=== PATIENT | male | born 1960 | race Caucasian/White ===

== ENCOUNTER 2023-12-13 17:29 | Emergency (ER) | payer BC, SELFPAY ==
[2023-12-13 17:30] VITALS: BP 150/75; PULSE 61; RESP 16; TEMP 36.6; O2SAT 94
[2023-12-13 17:32] VITALS: BMI 36.3
[2023-12-13 18:13] VITALS: O2SAT 98
--- NOTE | 2023-12-13 18:13 | EKG12_ITS ---
Test Reason : Blood Pressure : / mmHG Vent. Rate : 053 BPM Atrial Rate : 053 BPM P-R Int : 180 ms QRS Dur : 080 ms QT Int : 430 ms P-R-T Axes : 033 -17 048 degrees QTc Int : 403 ms Sinus bradycardia Otherwise normal ECG Confirmed by BENNY LAWLER, ANA ([id number]), publications editor PER AVILES ([id number]) on 12/17/2023 10:09:36 AM Referred By: Confirmed By:HIRAL ZAPATA MD
[2023-12-13 18:29] VITALS: BP 122/65; PULSE 57; RESP 16; O2SAT 98
--- NOTE | 2023-12-13 18:31 | RAD_ITS ---
EXAM: XR CHEST, 1 VIEW CLINICAL INDICATION: chest pain TECHNIQUE: Frontal view of the chest. COMPARISON: No relevant prior studies available. FINDINGS: LUNGS AND PLEURAL SPACES: Unremarkable. No consolidation or edema. No pneumothorax. No effusion. HEART: Unremarkable. Cardiac silhouette not enlarged. MEDIASTINUM: Central airways and mediastinal contour are unremarkable. BONES/JOINTS: Unremarkable. No acute fracture. SOFT TISSUES: Unremarkable. RAD/Chest 1 View (Portable) IMPRESSION: No radiographic evidence of acute cardiopulmonary disease. Electronically Signed: Alex Conway MD at 19:20 EDT ,
--- NOTE | 2023-12-13 18:49 | EDS_ITS ---
HPI History of Present Illness Chief Complaint: Hypoglycemia Narrative Narrative: 63-year-old male presenting with dizziness and weakness. He believes he is having low blood sugar problems. He states he is never been checked for this but he states every time he feels like his sugars are low he eats food such as candy bars or chips and gets his sugar up and the symptoms resolved. He states during his episodes he does get diaphoretic and his vision is blurry. Patient does not have a history of diabetes. He does not check his sugars. Today he was feeling like his sugar was low so he asked his for some food and she had breath minutes which she gave him. He states this is his worst episode yet. This is why they decided to come to the emergency room today. PFSH PFSH Allergy/AdvReac Type Severity Reaction Status Date / Time aspirin Allergy Severe Angioedema Verified 12/13/23 17:32 Social History Smoking Status: Former smoker ROS ROS ED Constitutional Constitutional ED: Reports sweats; Denies chills or fever(s) Eyes Eyes: Denies blurry vision or change in vision ENT ENT ED: Denies ear pain or sore throat Cardiovascular Cardiovascular: Reports palpitations and racing heartbeat; Denies chest pain Respiratory/Chest Respiratory/Chest: Denies cough, dyspnea or sputum Gastrointestinal Gastrointestinal: Denies abdominal pain, constipation, diarrhea, nausea or vom iting Genitourinary Genitourinary ED: Denies dysuria, hematuria or urinary frequency Musculoskeletal Musculoskeletal: Denies arthralgias, myalgias or neck pain Integumentary Denies abscess, Abrasions or rash Neurologic Neurologic: Denies headache(s), paresthesias or weakness Psychiatric Psychiatric: Denies anxiety, depression, suicidal ideation or suicidal thoughts Endocrine Endocrinology: Denies polydipsia or polyuria EXAM Physical Exam Const Vital Signs: 12/13/23 17:30 12/13/23 17:55 12/13/23 18:13 Temperature 98 F Temperature Source Oral Pulse Rate 61 Respiratory Rate 16 Respiratory Effort Normal Blood Pressure 150/75 H Blood Pressure Mean 100 Pulse Ox 94 98 Oxygen Delivery Method Room Air Room Air 12/13/23 18:29 12/13/23 19:00 12/13/23 19:58 Temperature 98 F Temperature Source Pulse Rate 57 L 57 L 55 L Respiratory Rate 16 18 16 Respiratory Effort Blood Pressure 122/65 H 131/78 H 144/73 H Blood Pressure Mean 84 95 96 Pulse Ox 98 97 97 Oxygen Delivery Method Room Air Room Air General Appearance ED: Negative for pallor HEENT Reports normocephalic, head/scalp atraumatic and moist mucous membranes Eyes PERRL and EOMs intact bilaterally Neck no lymphadenopathy and supple Chest Wall inspection of chest normal and palpation of chest normal Resp normal respiratory effort and clear to auscultation bilaterally Auscultation: Negative for rales, rhonchi or wheezes Cardio regular rate and regular rhythm GI normal to inspection, nondistended, normoactive bowel sounds and non-distended Auscultation: normoactive bowel sounds Palpation: soft Narrative: Deferred Back/Spine no CVA tenderness General Back: Negative for CVA tenderness Cervical Spine: Negative for cervical spine tenderness Extremity normal to inspection General Extremety ED: Yes edema and tenderness General Extremity: edema Neuro oriented x3 and CN's II-XII intact bilaterally Sensorium / Orientation: alert Motor Exam: strength 5/5 throughout Psych mental status grossly normal Attitude: No agitated Skin no rashes or lesions noted and no wounds General Skin Exam: Negative for jaundice or pallor MDM MDM MDM Narrative Medical decision making narrative: Patient presenting with episodes where he gets weak and he is concerned it might be his blood sugar. Differential includes near syncope, ACS, dehydration, anemia, hypoglycemia, electrolyte abnormalities. CBC will be obtained to assess white blood cell count, hemoglobin, platelets. BMP to assess renal function, electrolytes, glucose. High-sensitivity troponin and EKG to assess for i schemia/dysrhythmia. Chest x-ray to rule out pneumonia. BGT was 90. CBC shows normal white blood cell count of 7.3. Hemoglobin 15.1. Platelets are normal at 231. Renal function and electrolytes within normal limits. EKG interpreted by myself shows sinus bradycardia at a rate of 53 bpm without sign of ischemic change or ectopy. Chest x-ray interpreted by myself shows no acute process. High-sensitivity troponin is 4. TSH is 3.11 normal. Given patient's workup is ultimately normal I suspect maybe he is having hypoglycemic episodes. I recommend he follow-up with his PCP he is not currently established. I gave him 1 to follow-up with. Return precautions were discussed. Impression: 1. Weakness 2. Dizziness Lab Data Attestation: I reviewed the patient's lab results. Labs: Laboratory Results - last 24 hr 12/13/23 18:30 WBC 7.3 RBC 4.79 Hgb 15.1 Hct 43.6 MCV 91.0 MCH 31.5 MCHC 34.6 RDW Std Deviation 41.9 RDW Coeff of Heath 12.6 Plt Count 231 MPV 9.7 Immature Gran % (Auto) 0.400 Neut % (Auto) 49.7 Lymph % (Auto) 36.8 Orange % (Auto) 9.1 Eos % (Auto) 3.2 Baso % (Auto) 0.8 Absolute Neuts (auto) 3.6 Absolute Lymphs (auto) 2.68 Nucleated RBC % 0 Sodium 137 Potassium 3.5 Chloride 106 Carbon Dioxide 25.0 Anion Gap 6 BUN 14 Creatinine 0.81 Estim Creat Clear Calc 122.08 Est GFR (MDRD) Af Amer 124 Est GFR (MDRD) Non-Af 102 BUN/Creatinine Ratio 17.3 Glucose 109 H Calcium 8.9 Troponin I High Sens 4 TSH 3.11 Radiography Diagnostic Testing: Clinical Impression(s) from Imaging Studies Chest X-Ray 12/13/23 18:31 IMPRESSION: No radiographic evidence of acute cardiopulmonary disease. Electronically Signed: Alex Conway MD at 19:20 EDT , Discharge Plan Triage Chief Complaint: Hypoglycemia ED Provider: Rory Munroe Dx/Rx/DC Orders Instructions: ED Hypoglycemia, Nondiabetic Primary Care Provider: Care Physician,No Primary Referrals: Miriam Hughes MD [Med Staff - Speech Pathologist] - 3-5 Days Care Physician,No Primary [Primary Care Provider] - Print Language: Bengali Disposition Disposition: Home, Self Care Discharge Date/Time: 12/13/23 20:00
[2023-12-13 19:00] VITALS: BP 131/78; PULSE 57; RESP 18; O2SAT 97
[2023-12-13 19:21] LABS: Absolute Lymphocyte Count 2.68 X10^3/uL (0.83-4.51); Absolute Neutrophil Count 3.6 X10^3/uL (2.0-7.7); Basophil# 0.06 X10^3/uL; Basophil% 0.8 % (0-1); Eosinophil# 0.23 X10^3/uL; Eosinophils% 3.2 % (0-5); Hematocrit 43.6 % (40-54); Hemoglobin 15.1 g/dL (13.0-16.5); Lymphocyte # 2.68 X10^3/ul (0.83-4.51); Lymphocyte % 36.8 % (19-41); Mean Corp Hgb Conc 34.6 g/dL (32-36); Mean Corpuscular Hgb 31.5 pg (27.0-32.0); Mean Platelet Vol. 9.7 fl (6.2-12.0); Monocyte# 0.66 X10^3/uL; Monocyte% 9.1 % (0-10); NRBC Flagged by Analyzer 0 % (0-5); Neutrophil # 3.62 X10^3/uL (2.7-7.7); Neutrophil % 49.7 % (47-70); Platelet Count 231 K/mm3 (150-450); RBC Distribution Width CV 12.6 % (11.6-14.6); RBC Distribution Width SD 41.9 fl (35.1-43.9); Red Blood Count 4.79 M/mm3 (4.6-6.2); White Blood Count 7.3 K/mm3 (4.4-11.0)
[2023-12-13 19:39] LABS: Anion Gap 6 (5-15); BUN 14 mg/dL (7-18); BUN/Creat Ratio 17.3 RATIO (10-20); Calcium,Total 8.9 mg/dL (8.5-10.1); Chloride 106 mmol/L (98-107); Creatinine, Serum 0.81 mg/dL (0.70-1.30); EST Glomerular Filtration Rate 102 mL/min (>60); Est Glom Filt Rate - Afr Amer 124 mL/min (>60); Estimated Creatinine Clearance 122.08 ml/min; Glucose 109 mg/dL (74-106); Potassium 3.5 mmol/L (3.5-5.1); Sodium Level 137 mmol/L (136-145); Thyroid Stim Hormone (TSH) 3.11 uIU/mL (0.358-3.74); Troponin-I HS 4 pg/mL (3.0-78.0)
[2023-12-13 19:58] VITALS: BP 144/73; PULSE 55; RESP 16; TEMP 36.6; O2SAT 97
[2023-12-14 06:56] LABS: Bedside Glucose 90 mg/dL (74-106)
== END 2023-12-13 20:00 | disposition home or self-care (01) ==
PROVIDERS: Emergency Provider Student in an Organized Health Care Education/Training Program; Visit Provider Student in an Organized Health Care Education/Training Program
DX: R53.1 Weakness (principal); R42 Dizziness and giddiness; E16.2 Hypoglycemia, unspecified; Z87.891 Personal history of nicotine dependence; R00.2 Palpitations
CPT/HCPCS: 71045; 80048; 82962; 84443; 84484; 85025; 93005; 99283; A4216